=== PATIENT | male | born 1955 | race African-American/Black ===

== ENCOUNTER 2018-08-26 17:49 | Inpatient (IN) | payer MEDICAID ==
[~2018-08-26] VITALS: Ht 185.4 cm; Wt 88.5 kg
[2018-08-26 19:34] LABS: BASOPHILS % 0.3 % (0.0-2.0); EOSINOPHILS % 0.7 % (0.0-5.0); HEMATOCRIT. 42.2 % (42.0-52.0); HEMOGLOBIN. 13.5 g/dL (14.0-18.0); LYMPHOCYTES % 19.9 % (20.0-50.0); MEAN CORPUSCULAR HEMOGLOBIN 26.6 pg (28.0-32.0); MEAN CORPUSCULAR VOLUME 83.3 fL (80.0-94.0); MEAN PLATELET VOLUME 10.7 fl (7.4-10.4); NEUTROPHILS % 67.1 % (40.0-76.0); PLATELET 76 x1000/uL (130-400); RED BLOOD CELL COUNT 5.07 mill/uL (4.7-6.1); RED CELL DISTRIBUTION WIDTH 17.4 % (11.6-14.6)
[2018-08-26 19:39] LABS: CHLORIDE 107 mEq/L (98-107)
[2018-08-26 19:43] LABS: ETHANOL BLOOD < 10 mg/dL
[2018-08-26 19:44] LABS: INR 1.4; PARTIAL THROMBOPLASTIN TIME 28.7 sec (23.4-31.0); PROTHROMBIN TIME 14.3 sec (9.1-11.1)
[2018-08-26] MEDS ORDERED: MAGNESIUM 2 G PREMIX 50 ML IV ONE (20:00)
[2018-08-26] MEDS ORDERED: CLONIDINE 0.1MG TABLET PO PRN (20:45)
[2018-08-26] MEDS ORDERED: ACETAMINOPHEN 325MG TABLET PO PRN (20:45)
[2018-08-26] MEDS ORDERED: LORAZEPAM 2MG/ML CPJ IV PRN (20:45)
[2018-08-26] MEDS ORDERED: FOLIC ACID 1 MG, THIAMINE HCL 100 MG, MVI, ADULT NO.1 10 ML in DEXTROSE 5% WATER 1,000 ML IV SCH ×4 (20:45)
[2018-08-26] MEDS ORDERED: ONDANSETRON HCL 4MG/2ML INJ IV PRN (20:45)
[2018-08-26] MEDS ORDERED: FOLIC ACID 1 MG, MVI, ADULT NO.1 10 ML in DEXTROSE 5% WATER 1,000 ML IV NR ×3 (22:30)
[2018-08-27 10:00] LABS: BASOPHILS % 0.6 % (0.0-2.0); HEMATOCRIT. 40.6 % (42.0-52.0); HEMOGLOBIN. 13.1 g/dL (14.0-18.0); MEAN CORPUSCULAR HEMOGLOBIN 26.6 pg (28.0-32.0); MEAN CORPUSCULAR VOLUME 82.7 fL (80.0-94.0); MEAN PLATELET VOLUME 10.9 fl (7.4-10.4); MONOCYTES % 13.2 % (2.0-8.0); NEUTROPHILS % 47.2 % (40.0-76.0); PLATELET 71 x1000/uL (130-400); RED BLOOD CELL COUNT 4.91 mill/uL (4.7-6.1); RED CELL DISTRIBUTION WIDTH 17.2 % (11.6-14.6)
[2018-08-27 11:03] VITALS: BP 146/90
[2018-08-27 12:00] VITALS: BP 141/87
[2018-08-27] MEDS: THIAMINE HCL 100MG TABLET PO SCH (12:26)
[2018-08-27 12:32] LABS: CHLORIDE 108 mEq/L (98-107)
[2018-08-27 16:00] VITALS: BP 110/56
[2018-08-27 16:44] LABS: HEPATITIS B SURFACE ANTIGEN NEGATIVE
[2018-08-27 17:13] LABS: HEPATITIS A AB IGM NEGATIVE (NEGATIVE)
[2018-08-27 20:00] VITALS: BP 132/73
[2018-08-27] MEDS: FOLIC ACID 1 MG, MVI, ADULT NO.1 10 ML in DEXTROSE 5% WATER 1,000 ML IV SCH ×3 (23:32)
[2018-08-28] VITALS (7 sets, daily range): BP systolic 116–142; BP diastolic 56–76
[2018-08-28] MEDS: THIAMINE HCL 100MG TABLET PO SCH (08:08)
[2018-08-28] MEDS ORDERED: FOLIC ACID 1 MG, MVI, ADULT NO.1 10 ML in DEXTROSE 5% WATER 1,000 ML IV SCH ×3 (09:00)
[2018-08-28 10:33] LABS: BASOPHILS % 0.8 % (0.0-2.0); EOSINOPHILS % 3.3 % (0.0-5.0); HEMATOCRIT. 36.9 % (42.0-52.0); LYMPHOCYTES % 36.4 % (20.0-50.0); MEAN CORPUSCULAR HEMOGLOBIN 26.8 pg (28.0-32.0); MEAN CORPUSCULAR VOLUME 82.6 fL (80.0-94.0); MONOCYTES % 12.2 % (2.0-8.0); NEUTROPHILS % 47.3 % (40.0-76.0); PLATELET 67 x1000/uL (130-400); RED BLOOD CELL COUNT 4.47 mill/uL (4.7-6.1); RED CELL DISTRIBUTION WIDTH 17.1 % (11.6-14.6)
[2018-08-28 11:00] LABS: CHLORIDE 108 mEq/L (98-107)
[2018-08-28 13:24] LABS: *AMPHETAMINES SCREEN URINE NEGATIVE (NEGATIVE)
[2018-08-28 13:26] LABS: *BARBITURATES SCREEN URINE NEGATIVE (NEGATIVE); *BENZODIAZEPINES SCREEN URINE PRESUMTIVE POSITIVE (NEGATIVE); *COCAINE SCREEN URINE NEGATIVE (NEGATIVE); CANNABINOID URINE SCREEN NEGATIVE (NEGATIVE); METHADONE URINE SCREEN NEGATIVE (NEGATIVE); OPIATES URINE SCREEN NEGATIVE (NEGATIVE); PHENCYCLIDINE URINE SCREEN NEGATIVE (NEGATIVE)
[2018-08-28] MEDS: FOLIC ACID 1 MG, MVI, ADULT NO.1 10 ML in DEXTROSE 5% WATER 1,000 ML IV SCH ×3 (23:00)
[2018-08-29] VITALS: BP 129/69
[2018-08-29 04:00] VITALS: BP 133/71
[2018-08-29 08:22] VITALS: BP 133/60
[2018-08-29] MEDS: THIAMINE HCL 100MG TABLET PO SCH (08:33)
[2018-08-29 12:03] VITALS: BP 127/66
== END 2018-08-29 14:37 | disposition home or self-care (01) | DRG 115 ==
LOC: ER 17:53 → 8WST 20:25 → ENRESERV 08-27 07:54
PROVIDERS: ADMIT Internal Medicine; ATTEND Internal Medicine
DX: S01.511A Laceration without foreign body of lip, initial encounter (principal); D68.9 Coagulation defect, unspecified; I11.9 Hypertensive heart disease without heart failure; E44.1 Mild protein-calorie malnutrition; E83.42 Hypomagnesemia; M25.561 Pain in right knee; G89.29 Other chronic pain; W18.30XA Fall on same level, unspecified, initial encounter; F10.10 Alcohol abuse, uncomplicated; Y93.89 Activity, other specified; Y92.89 Other specified places as the place of occurrence of the external cause; Y99.8 Other external cause status; I69.30 Unspecified sequelae of cerebral infarction; Z68.25 Body mass index [BMI] 25.0-25.9, adult; Z71.41 Alcohol abuse counseling and surveillance of alcoholic; I69.328 Other speech and language deficits following cerebral infarction; Z88.0 Allergy status to penicillin
CPT/HCPCS: 36415; 70486; 71045; 73562; 80048; 80061; 80305; 80307; 80329; 83735; 83880; 84443; 84484; 86705; 86709; 86803; 87340; 93005; 93970; 96365; 96366; 96375; 97116; 97162; 99285; J2060; J3475; J3490; J7070